=== PATIENT | female | born 1955 ===

== ENCOUNTER 2025-07-04 09:58 | Outpatient (RCR) | payer BC, MEDICARE, SELFPAY ==
[2025-07-04 10:00] VITALS: BP 110/63
[2025-07-04] MEDS: RECLAST 100 IV (10:17)
== END 2025-07-05 11:49 | disposition home or self-care (01) ==
LOC: OID 09:58
PROVIDERS: ATTENDING PHYSICIAN Internal Medicine Endocrinology, Diabetes & Metabolism; FAMILY PHYSICIAN Nurse Practitioner Family
DX: N81.0 Urethrocele (principal)
CPT/HCPCS: 96365; J3489